=== PATIENT | female | born 1990 | race Two or more races ===

== ENCOUNTER 2022-05-14 06:03 | Emergency (ER) | payer OTHER ==
[~2022-05-14] VITALS: Ht 154.9 cm; Wt 45.4 kg
[2022-05-14] MEDS ORDERED: PROMETHAZINE HC25 MG PO (13:36)
[2022-05-14] MEDS ORDERED: PEPCID AC20 MG PO (13:36)
== END 2022-05-14 13:53 ==
LOC: ER 06:03
DX: K29.70 Gastritis, unspecified, without bleeding (principal); Z88.8 Allergy status to other drugs, medicaments and biological substances; R11.10 Vomiting, unspecified